=== PATIENT | female | born 1965 | race Caucasian/White ===

== ENCOUNTER 2017-12-01 17:07 | Emergency (ER) | payer BC ==
[~2017-12-01] VITALS: Ht 160 cm; Wt 127.0 kg
[~2017-12-01 17:07] MED LIST: ALBU90OI61 INH; ALPR.5 PO; LISHYD2025 PO
[2017-12-01] MEDS ORDERED: Hydrocodone-Ap1 EA20 PO (17:41)
[2017-12-01] MEDS ORDERED: Cyclobenzaprine5 MG PO (17:41)
[2017-12-01] MEDS ORDERED: Advair Hfa 115-12 GM INH (17:41)
[2017-12-01] MEDS ORDERED: ZESTORETIC 20-121 EA (17:41)
[2017-12-01] MEDS ORDERED: Valium5 MG PO (18:33)
[2017-12-02] MEDS ORDERED: DIAZ5 PO (14:01)
[2017-12-02] MEDS ORDERED: Prednisone20 MG PO (14:01)
== END 2017-12-01 18:40 | disposition home or self-care (01) ==
LOC: ER 17:07
DX: M54.6 Pain in thoracic spine (principal); M54.5 Low back pain; Z88.5 Allergy status to narcotic agent; Z79.891 Long term (current) use of opiate analgesic; Z79.899 Other long term (current) drug therapy; I10 Essential (primary) hypertension; J45.909 Unspecified asthma, uncomplicated; F17.200 Nicotine dependence, unspecified, uncomplicated
CPT/HCPCS: 96372; 99283; J1885

== ENCOUNTER 2017-12-02 13:22 | Emergency (ER) | payer BC ==
[~2017-12-02] VITALS: Ht 162.6 cm; Wt 127.0 kg
[~2017-12-02 13:22] MED LIST changes: +Advair Hfa 115-12 GM INH; +Cyclobenzaprine5 MG PO; +Hydrocodone-Ap1 EA20 PO; +Valium5 MG PO; +ZESTORETIC 20-121 EA
[2017-12-02] MEDS ORDERED: Prednisone20 MG PO (14:01)
[2017-12-02] MEDS ORDERED: DIAZ5 PO (14:01)
== END 2017-12-02 14:12 | disposition home or self-care (01) ==
LOC: ER 13:22
DX: M54.5 Low back pain (principal); Z87.891 Personal history of nicotine dependence; Z88.5 Allergy status to narcotic agent; Z79.51 Long term (current) use of inhaled steroids; Z79.899 Other long term (current) drug therapy
CPT/HCPCS: 96372; 99283; J1885

== ENCOUNTER 2017-12-09 16:26 | Emergency (ER) | payer BC ==
[~2017-12-09] VITALS: Ht 160 cm; Wt 127.0 kg
[~2017-12-09 16:26] MED LIST changes: +DIAZ5 PO; +Prednisone20 MG PO
[2017-12-09] MEDS ORDERED: OXYC1TAB11 PO (19:15)
[2017-12-09] MEDS ORDERED: IBUP800 PO (19:59)
== END 2017-12-09 20:10 | disposition home or self-care (01) ==
LOC: ER 16:26
DX: G89.29 Other chronic pain (principal); M54.9 Dorsalgia, unspecified; F17.200 Nicotine dependence, unspecified, uncomplicated; Z88.5 Allergy status to narcotic agent; Z79.899 Other long term (current) drug therapy; Z79.52 Long term (current) use of systemic steroids; Z90.49 Acquired absence of other specified parts of digestive tract
CPT/HCPCS: 96374; 96375; 99283; J1100; J1170; J1885; J2405

== ENCOUNTER → 2021-05-08 | Outpatient (CLI) | payer BC ==
[~2021-05-08] MED LIST changes: +IBUP800 PO; +OXYC1TAB11 PO
[2021-05-12 09:10] LABS: HPV 16 Negative (Negative); HPV 18 Negative (Negative); HPV OTHER HR TYPES Negative (Negative)
== END ==
LOC: LAB 12:00 → LAB SHORT 12:00
PROVIDERS: Obstetrics & Gynecology
DX: Z01.419 Encounter for gynecological examination (general) (routine) without abnormal findings (principal); Z88.5 Allergy status to narcotic agent
CPT/HCPCS: 87624; G0123

== ENCOUNTER 2022-04-08 08:29 | Day surgery (SDC) | payer BC ==
[~2022-04-08] VITALS: Ht 160 cm; Wt 115.9 kg
[~2022-04-08 08:29] MED LIST changes: +ALLO100; +MIRALAX17 GM PO; +OXYC10TA19 PO
--- NOTE | 2022-04-08 08:54 | NUR ---
PT ADMITTED TO [facility]. AGREES WITH PLANNED PROCEDURE. STATES LAST BM CLEAR/YELLOW. LUNG SOUNDS WITH EXPIRATORY WHEEZES, PT STATES SHE WOKE UP WITH A MOIST COUGH THIS AM. DR. SALINAS INFORMED OF LUNG ASSESSMENT. ORDER GIVEN FOR DUO NEB TREATMENT.
--- NOTE | 2022-04-08 09:35 | NUR ---
04/08/22 0935 Marcela Kennedy History, Chart, Medications and Allergies reviewed before start of procedure. MONITOR INTACT WITH CONTINUOUS PULSE OXIMETRY AND INTERMITTENT BP. 3-LEAD EKG REVIEWED WITH PHYSICIAN PRIOR TO START OF PROCEDURE. O2 VIA CO2 NC/NON REBREATHER INTACT T/O SEDATION/PROCEDURE SEDATION PERFORMED BY DR. SALINAS SEE ANESTHESIA RECORD.
--- NOTE | 2022-04-08 10:08 | NUR ---
REPORT FROM ROGER DEE RN. PT REQUESTING PO FLUIDS AND FOOD.
--- NOTE | 2022-04-08 10:34 | NUR ---
Patient up to Ambulate independently. Gait steady. Discharge instructions reviewed with patient. Patient verbalizes understanding. Copy given to patient to take home. Patient States Post-Procedure ride home has been arranged. Discharged via wheelchair to private car for ride home. ALL BELONGINGS RETURNED TO PATIENT.
== END 2022-04-08 23:43 | disposition home or self-care (01) ==
LOC: ORSCMMR 08:29 → ORD 10:00 → ORSCMMR 23:43
PROVIDERS: Internal Medicine Gastroenterology
PROC: 0DBN8ZX Excision of Sigmoid Colon, Via Natural or Artificial Opening Endoscopic, Diagnostic (ICD-10-PCS; principal; 2022-04-08 10:00)
PROC: 0DBH8ZX Excision of Cecum, Via Natural or Artificial Opening Endoscopic, Diagnostic (ICD-10-PCS; principal; 2022-04-08 10:00)
PROC: 0DBP8ZX Excision of Rectum, Via Natural or Artificial Opening Endoscopic, Diagnostic (ICD-10-PCS; principal; 2022-04-08 10:00)
DX: Z12.11 Encounter for screening for malignant neoplasm of colon (principal); Z86.010 Personal history of colon polyps; D12.0 Benign neoplasm of cecum; K63.5 Polyp of colon; K62.1 Rectal polyp; K63.89 Other specified diseases of intestine; I10 Essential (primary) hypertension; J45.909 Unspecified asthma, uncomplicated; F17.210 Nicotine dependence, cigarettes, uncomplicated; E66.01 Morbid (severe) obesity due to excess calories; Z68.42 Body mass index [BMI] 45.0-49.9, adult; F41.9 Anxiety disorder, unspecified; Z79.899 Other long term (current) drug therapy
CPT/HCPCS: 88305; J2001; J2250; J2704; J7120

== ENCOUNTER → 2022-11-23 | Outpatient (CLI) | payer BC ==
[2022-11-23 11:36] LABS: Source, Urine Clean Catch
[2022-11-23 12:51] LABS: Appearance, Urine Clear (Clear); Bilirubin, Urine Neg (Neg); Blood, Urine 2+ (Neg); Color, Urine Yellow (P-Yellow); Glucose Qualitative, Urine Neg (Neg); Ketones, Urine Neg (Neg); Leukocyte Esterase, Urine Neg (Neg); Nitrite, Urine Neg (Neg); Protein, Urine Neg (Neg); Specific Gravity, Urine 1.015 (1.003-1.022); Urobilinogen, Urine NORM (Normal)
[2022-11-23 13:07] LABS: Bacteria Few /hpf; Red Blood Cells, Urine 0-2 /hpf (0-2); Squamous Epithelial Cells Few /hpf (Few)
== END | disposition home or self-care (01) ==
LOC: LAB SHORT 10:30 → LAB 10:30
PROVIDERS: Nurse Practitioner Family
DX: I10 Essential (primary) hypertension (principal)
CPT/HCPCS: 81001

== ENCOUNTER → 2023-06-10 | Outpatient (CLI) | payer BC | LOC: PLD 10:58 → LAB 10:58 → LAB SHORT 10:58 | DX: N84.0 Polyp of corpus uteri (principal) | CPT/HCPCS: 88305 ==

== ENCOUNTER → 2025-04-16 | Outpatient (CLI) | payer BC | LOC: LAB SHORT 08:40 → LAB 08:40 | DX: H57.89 Other specified disorders of eye and adnexa (principal) | CPT/HCPCS: 87070; 87205; 87252 ==